=== PATIENT | female | born 1965 | race Caucasian/White ===

== ENCOUNTER 2024-07-23 12:24 | Day surgery (SDC) | payer OTHER ==
[~2024-07-23] VITALS: Ht 149.9 cm; Wt 87.4 kg
[~2024-07-23 12:24] MED LIST: ASPI81CH PO; Balanced Salt Epinephrine Irrigation Solution 500 mL IR SCH; CYCL10 PO; ESCI20 PO; LEVOTHYROXINE112 M18 PO; Lidocaine HCl/Pf 1% 5 ML VIAL XX SCH; Moxifloxacin HCL 0.5 MG/0.1 ML 0.4MLSYR LEFTEYE SCH; PHENYLEPHRINE\\TROPICAMIDE\\TETRACAINE OPHTHALMIC DILATING SOLN LEFTEYE PRN; Povidone-Iodine 450 DROP/30 ML Solution LEFTEYE SCH; Povidone-Iodine 450 DROP/30 ML Solution ONE; ROSUVASTATIN CA10 MG PO; TRAZ150T57 PO; Tetracaine HCl/Pf 0.5% Opth Soln 4 ml ONE
[2024-07-23] MEDS ORDERED: Diazepam 10 MG Tab ONE (12:42)
--- NOTE | 2024-07-23 13:21 | NUR ---
07/23/24 1321 Melissa Jacques 1315 BP125/76, HR 69 O2@98%, RESP 18
== END 2024-07-23 13:55 | disposition home or self-care (01) ==
LOC: ORSCSDS 12:24
PROVIDERS: Student in an Organized Health Care Education/Training Program
PROC: 08RK3JZ Replacement of Left Lens with Synthetic Substitute, Percutaneous Approach (ICD-10-PCS; principal; 2024-07-23 14:00)
DX: H25.812 Combined forms of age-related cataract, left eye (principal); Z96.1 Presence of intraocular lens; H52.03 Hypermetropia, bilateral; H40.9 Unspecified glaucoma; F32.A Depression, unspecified; E78.2 Mixed hyperlipidemia; F17.210 Nicotine dependence, cigarettes, uncomplicated; Z79.899 Other long term (current) drug therapy
CPT/HCPCS: A9270; V2632